=== PATIENT | male | born 1940 | race Hispanic/Latino ===

== ENCOUNTER 2024-05-06 20:14 | Emergency (ER) | payer OTHER ==
[~2024-05-06] VITALS: Ht 167.6 cm; Wt 68.0 kg
[~2024-05-06 20:14] MED LIST: DOXAZOSIN MESYLA2 MG PO; GLIPIZIDE5 MG PO; LANTUS 3ML100 UNITS/ SQ; LOVASTATIN40 MG PO; PANTOPRAZOLE SO40 MG PO; PIOGLITAZONE15 MG PO; VASOTEC10 MG PO
[2024-05-06 20:15] VITALS: TEMP 98.1
[2024-05-06 20:48] LABS: BASOPHILS % 0.8 % (0.0-1.0); EOSINOPHILS # (AUTO) 0.1 (0.0-0.4); EOSINOPHILS % 3.8 % (0.0-6.0); HEMATOCRIT 29.3 % (38.2-49.6); HEMOGLOBIN 9.5 g/dL (14.0-18.0); LYMPHOCYTES # (AUTO) 1.1 (1.0-3.2); MEAN CORPUSCULAR HEMOGLOBIN 33.7 pg (28-32); MEAN CORPUSCULAR HGB CONC 32.4 g/dL (31-35); MEAN CORPUSCULAR VOLUME 103.9 fL (81-99); MONOCYTES # (AUTO) 0.4 (0.2-0.8); NEUTROPHILS # (AUTO) 2.1 (2.1-6.9); NEUTROPHILS % 56.1 % (38.7-80.0); RED BLOOD COUNT 2.82 x10e6/uL (4.3-5.7); RED CELL DISTRIBUTION WIDTH 13.6 % (11.7-14.4); WHITE BLOOD COUNT 3.69 x10e3/uL (4.8-10.8)
[2024-05-06 20:50] LABS: PLATELET COUNT 79 x10e3/uL (140-360)
[2024-05-06 21:10] LABS: ALBUMIN 3.5 g/dL (3.5-5.0); ALBUMIN/GLOBULIN RATIO 0.9 (0.8-2.0); ANION GAP 17.2 mmol/L (8-16); BILIRUBIN,TOTAL 1.1 mg/dL (0.2-1.2); CALCIUM 8.6 mg/dL (8.4-10.2); CREATININE, SERUM 2.15 mg/dL (0.72-1.25); TOTAL PROTEIN 7.2 g/dL (6.5-8.1)
[2024-05-06 21:16] LABS: POTASSIUM 5.2 mmol/L (3.5-5.1)
[2024-05-06 21:33] LABS: TROPONIN I 0.007 ng/mL (0-0.300)
[2024-05-06] MEDS: SODIUM CHLORIDE 0.9% 1000ML 1,000 ML IV SCH (22:49)
[2024-05-06] MEDS: INSULIN REGULAR, HUMAN 100 UNIT/1 ML SQ ONE (22:50)
[2024-05-06 23:34] LABS: BILIRUBIN,URINE NEGATIVE (NEGATIVE); CLARITY,URINE CLEAR (CLEAR); COLOR,URINE YELLOW (YELLOW); GLUCOSE, URINE 500 (NEGATIVE); KETONES,URINE NEGATIVE (NEGATIVE); LEUKOCYTE ESTERASE ,URINE NEGATIVE (NEGATIVE); NITRITE,URINE NEGATIVE (NEGATIVE); PH,URINE 6 (5 - 7); PROTEIN,URINE DIPSTICK NEGATIVE (NEGATIVE); URINE UROBILINOGEN 1 mg/dL (0.2 - 1)
[2024-05-06 23:40] LABS: BACTERIA,URINE RARE /HPF; EPITHELIAL CELLS,URINE RARE /LPF; RBC,URINE 0-5 /HPF (0-5); WBC,URINE (MAN) 0-5 /HPF (0-5)
[2024-05-07 00:40] LABS: ANION GAP 11.5 mmol/L (8-16); CREATININE, SERUM 1.61 mg/dL (0.72-1.25); POTASSIUM 4.5 mmol/L (3.5-5.1)
[2024-05-07 00:45] VITALS: PULSE 50; RESP 14
[2024-05-07 00:49] LABS: CALCIUM 7.2 mg/dL (8.4-10.2)
[2024-05-07 01:45] VITALS: BP 131/53; O2SAT 99
== END 2024-05-07 01:46 | disposition home or self-care (01) ==
LOC: ER 20:23
DX: R10.11 Right upper quadrant pain (principal); E86.9 Volume depletion, unspecified; E11.65 Type 2 diabetes mellitus with hyperglycemia; K74.60 Unspecified cirrhosis of liver; R94.31 Abnormal electrocardiogram [ECG] [EKG]
CPT/HCPCS: 36415; 74176; 76705; 80048; 80053; 81001; 83690; 84484; 85025; 93005; 99284; J1817; J2470; J7030

== ENCOUNTER 2025-02-08 12:30 | Emergency (ER) | payer MEDICARE, OTHER ==
[~2025-02-08] VITALS: Ht 165.1 cm; Wt 74.8 kg
[2025-02-08 13:03] VITALS: TEMP 98.3
[2025-02-08 13:48] LABS: BASOPHILS % 0.5 % (0.0-1.0); EOSINOPHILS % 3.0 % (0.0-6.0); LYMPHOCYTES % 20.0 % (18.0-39.1); MONOCYTES % 8.1 % (4.4-11.3); NEUTROPHILS % 67.9 % (38.7-80.0); RED CELL DISTRIBUTION WIDTH 14.1 % (11.7-14.4)
[2025-02-08 13:55] LABS: LEUKOCYTE ESTERASE ,URINE NEGATIVE (NEGATIVE); PROTEIN,URINE DIPSTICK NEGATIVE (NEGATIVE)
[2025-02-08 13:56] LABS: URINE UROBILINOGEN 0.2 mg/dL (0.2 - 1)
[2025-02-08 13:59] LABS: EST GLOMERULAR FILTRATION RATE 25.0 ML/MIN (>=60)
[2025-02-08 14:02] LABS: EPITHELIAL CELLS,URINE FEW /LPF; WBC,URINE (MAN) 0-5 /HPF (0-5)
[2025-02-08 16:28] VITALS: PULSE 61; RESP 16; O2SAT 100
== END 2025-02-08 16:30 | disposition home or self-care (01) ==
LOC: ER 13:04
DX: N50.89 Other specified disorders of the male genital organs (principal); K74.60 Unspecified cirrhosis of liver; I10 Essential (primary) hypertension; E11.65 Type 2 diabetes mellitus with hyperglycemia; E78.5 Hyperlipidemia, unspecified; Z87.442 Personal history of urinary calculi
CPT/HCPCS: 36415; 76870; 80053; 81001; 85025; 93976; 99283